=== PATIENT | male | born 1970 | race African-American/Black ===

== ENCOUNTER 2024-02-07 17:24 | Emergency (ER) | payer OTHER ==
[~2024-02-07] VITALS: Ht 188 cm; Wt 137.4 kg
[2024-02-07] MEDS: SODIUM CHLORIDE 0.9% 1000ML 1,000 ML IV SCH (18:16)
[2024-02-07] MEDS: KETOROLAC TROMETHAMINE 30 MG/ML VIAL IV STA (18:41)
[2024-02-07] MEDS ORDERED: KETOROLAC TROME10 MG PO (21:01)
[2024-02-07] MEDS ORDERED: CYCLOBENZAPRINE10 MG PO (21:02)
[2024-02-07 21:04] VITALS: O2SAT 99
== END 2024-02-07 21:12 | disposition home or self-care (01) ==
LOC: FSED 17:34
DX: R10.31 Right lower quadrant pain (principal); N20.0 Calculus of kidney; M54.9 Dorsalgia, unspecified; I10 Essential (primary) hypertension; R73.03 Prediabetes; Z68.38 Body mass index [BMI] 38.0-38.9, adult; F17.210 Nicotine dependence, cigarettes, uncomplicated
CPT/HCPCS: 74177; 80048; 80076; 85025; 99284